=== PATIENT | female | born 2000 | race Caucasian/White ===

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

== ENCOUNTER 2021-08-14 17:14 | Emergency (ER) | payer OTHER ==
[~2021-08-14] VITALS: Ht 165.1 cm; Wt 95.3 kg
[~2021-08-14 17:14] MED LIST: MACROBID 100 M100 MG PO
[2021-08-14 19:55] VITALS: BP 112/83
== END 2021-08-14 19:58 | disposition home or self-care (01) ==
LOC: M.ERS 17:14
DX: S80.12XA Contusion of left lower leg, initial encounter (principal); M79.644 Pain in right finger(s); V89.2XXA Person injured in unspecified motor-vehicle accident, traffic, initial encounter; Y93.89 Activity, other specified; Y92.89 Other specified places as the place of occurrence of the external cause; Y99.8 Other external cause status